=== PATIENT | male | born 1945 | race Caucasian/White ===

== ENCOUNTER 2020-01-16 02:16 | Inpatient (IN) | payer MEDICARE ==
[2020-01-16] MEDS ORDERED: LABETALOL 5 MG/ML VIAL MDV IVP STA (02:24)
--- NOTE | 2020-01-16 02:30 | ED ---
Chest Pain HPI - General Chief Complaint: Chest Pain Stated Complaint: Chest pain Time Seen by Provider: 01/16/20 02:22 Source: EMS, RN notes reviewed, old records reviewed Mode of arrival: EMS Limitations: no limitations - History of Present Illness Initial Comments: This is a 74-year-old male DF for evaluation patient has history of heart disease CABG complaining of chest pain as well as dizziness vertiginous symptoms weakness especially with position, these are symptoms similar prior ID with recalled required surgery. Patient states his symptoms are improved is on is still currently. No recent fevers cough or congestion no current headache MD Complaint: chest pain -: hour(s) Onset: during rest, during exertion Pain Location: substernal, left chest Pain Radiation: LUE Severity: mild Severity scale (1-10): 3 Quality: heaviness Consistency: intermittent Improves With: nothing Worsens With: nothing Anginal Symptoms: nausea Treatments Prior to Arrival: none - Related Data Home Medications Medication Instructions Recorded Confirmed Aspirin [Adult Low Dose Aspirin EC] 81 mg PO DAILY 01/16/20 01/16/20 Cholecalciferol [Vitamin D3 (25 1,000 unit PO DAILY 01/16/20 01/16/20 Mcg = 1000 Iu)] Pravastatin Sodium [Pravachol] 40 mg PO HS 01/16/20 01/16/20 Previous Rx's Medication Instructions Recorded ALPRAZolam [Xanax] 0.5 mg PO Q6HR PRN #12 tab 01/18/20 Acetaminophen Tab [Tylenol] 650 mg PO Q6HR PRN tab 01/18/20 Isosorbide Mononitrate ER [Imdur] 30 mg PO DAILY 30 Days #30 01/18/20 tab.er.24h Losartan [Cozaar] 50 mg PO BID 30 Days #60 tab 01/18/20 Metoprolol Tartrate [Lopressor] 50 mg PO BID 30 Days #60 tab 01/18/20 Nitroglycerin Sl Tabs [Nitrostat] 0.4 mg SUBLINGUAL Q5M PRN #30 tab 01/18/20 hydrALAZINE HCL 50 mg PO TID 30 Days #90 tab 01/18/20 Allergies Allergy/AdvReac Type Severity Reaction Status Date / Time No Known Allergies Allergy Verified 01/16/20 07:53 Review of Systems ROS Statement: Those systems with pertinent positive or pertinent negative responses have been documented in the HPI. ROS Other: All systems not noted in ROS Statement are negative. EKG Findings - EKG Comments: EKG Findings:: EKG shows bradycardia 54, WV 200, QRS 78, QTC 489. EKG shows sinus bradycardia 54 WV 200 QRS 80 QTC 489 Past Medical History Past Medical History: Chest Pain / Angina, Hypertension History of Any Multi-Drug Resistant Organisms: None Reported Past Surgical History: Coronary Bypass/CABG Additional Past Surgical History / Comment(s): triple bypass Past Psychological History: No Psychological Hx Reported Smoking Status: Never smoker Past Alcohol Use History: None Reported Past Drug Use History: None Reported - Past Family History Father Family Medical History: Myocardial Infarction (ID) Additional Family Medical History / Comment(s): Father had his first ID at the age of 47 and from his 3rd ID at the age of 49. Mother Family Medical History: Diabetes Mellitus Additional Family Medical History / Comment(s): Britt is . General Exam General appearance: alert, in no apparent distress Head exam: Present: atraumatic, normocephalic, normal inspection Eye exam: Present: normal appearance, PERRL, EOMI. Absent: scleral icterus, conjunctival injection, periorbital swelling ENT exam: Present: normal exam, mucous membranes moist Neck exam: Present: normal inspection. Absent: tenderness, meningismus, lymphadenopathy Respiratory exam: Present: normal lung sounds bilaterally. Absent: respiratory distress, wheezes, rales, rhonchi, stridor Cardiovascular Exam: Present: regular rate, normal rhythm, normal heart sounds. Absent: systolic murmur, diastolic murmur, rubs, gallop, clicks GI/Abdominal exam: Present: soft, normal bowel sounds. Absent: distended, tenderness, guarding, rebound, rigid Extremities exam: Present: normal inspection, full ROM, normal capillary refill. Absent: tenderness, pedal edema, joint swelling, calf tenderness Back exam: Present: normal inspection Neurological exam: Present: alert, oriented X3, CN II-XII intact Psychiatric exam: Present: normal affect, normal mood Skin exam: Present: warm, dry, intact, normal color. Absent: rash Course Vital Signs 01/16/20 01/16/20 01/16/20 02:18 03:45 04:10 Temperature 98.4 F Pulse Rate 55 L 64 55 L Respiratory 18 17 18 Rate Blood Pressure 145/90 171/84 198/93 O2 Sat by Pulse 100 99 99 Oximetry 01/16/20 01/16/20 01/16/20 04:45 05:19 06:03 Temperature Pulse Rate 53 L 55 L 55 L Respiratory 17 17 17 Rate Blood Pressure 173/67 177/90 O2 Sat by Pulse 99 99 99 Oximetry 01/16/20 01/16/20 01/16/20 06:51 09:42 11:36 Temperature 98.3 F Pulse Rate 53 L 56 L 57 L Respiratory 17 18 18 Rate Blood Pressure 173/93 170/90 135/76 O2 Sat by Pulse 98 98 98 Oximetry - Reevaluation(s) Reevaluation #1: Medical records reviewed Patient does have continued bouts of dizziness here in the ER which again he relates a prior ID Chest Pain MDM - MDM 74 male DF for evaluation has chest pain and dizziness, vertiginous symptoms similar prior ID CT brain negative CT angios for PE is negative for acute disease patient can be admitted for cardiology observation Critical Care Time Critical Care Time: Yes Total Critical Care Time: 31 Disposition Clinical Impression: Chest pain Disposition: ADMITTED IP TO THIS HOSP Condition: Stable Is patient prescribed a controlled substance at d/c from ED?: No
[2020-01-16 02:43] LABS: Basophils % (A) 0 %; Eosinophils # (A) 0.2 k/uL (0-0.7); Eosinophils % (A) 2 %; HCT 45.4 % (39.0-53.0); HGB 16.1 gm/dL (13.0-17.5); Lymphocytes % (A) 14 %; MCH 33.6 pg (25.0-35.0); MCHC 35.4 g/dL (31.0-37.0); Mean Platelet Volume 7.3; Monocytes # (A) 0.5 k/uL (0-1.0); Monocytes % (A) 6 %; Neutrophils # (A) 5.6 k/uL (1.3-7.7); Neutrophils % (A) 75 %; Platelet Count 176 k/uL (150-450); RBC 4.78 m/uL (4.30-5.90); RDW 13.8 % (11.5-15.5); WBC 7.4 k/uL (3.8-10.6)
--- NOTE | 2020-01-16 02:53 | XR ---
EXAMINATION TYPE: XR chest 2V DATE OF EXAM: 01/16/2020 COMPARISON: NONE HISTORY: Left side pain TECHNIQUE: 2 views FINDINGS: There is some blunting of the left costophrenic angle. There is also slight blunting on the right side. There is some linear density in the left midlung field. Heart size is normal. There are no hilar masses. There are sternal wires. Bony thorax is intact. IMPRESSION: There is some pleural and pulmonary scarring in the left lung. No heart failure seen. The re is evidence of small bilateral pleural effusions.
[2020-01-16 02:54] LABS: Albumin 3.6 g/dL (3.5-5.0); Calcium 8.7 mg/dL (8.4-10.2); Potassium 3.9 mmol/L (3.5-5.1); Total Bilirubin 0.9 mg/dL (0.2-1.3); Total Protein 6.4 g/dL (6.3-8.2)
[2020-01-16 03:14] LABS: INR 0.9 (<1.2); Prothrombin Time 9.7 sec (9.0-12.0)
[2020-01-16 03:26] LABS: D-Dimer 0.72 mg/L FEU (<0.60)
[2020-01-16] MEDS ORDERED: HEPARIN SODIUM,PORCINE 5,000 UNIT/ML 1 ML VIAL IV PRN (04:10)
[2020-01-16] MEDS ORDERED: HEPARIN SODIUM,PORCINE 5,000 UNIT/ML 1 ML VIAL IV ONE (04:10)
[2020-01-16] MEDS ORDERED: ASPIRIN 81 MG PO STA (04:10)
[2020-01-16] MEDS ORDERED: hydrALAZINE HCL 20 MG/ML 1 ML VIAL IVP STA ×2 (04:28→07:01)
--- NOTE | 2020-01-16 04:32 | CT ---
EXAMINATION TYPE: CT angio chest DATE OF EXAM: 01/16/2020 COMPARISON: None HISTORY: Chest pain CT DLP: 520.9 mGycm Automated exposure control for dose reduction was used. CONTRAST: Performed with IV Contrast, patient injected with 90 mL of Isovue 370. There are 3-D post processed images. There are mild to moderate bilateral pleural effusions. There is no pericardial effusion. There is so me patchy atelectasis at the lung bases. There is no mediastinal adenopathy. Thoracic aorta shows mild atheromatous change. There is no aneury sm or dissection. There are bilateral bronchial lymph nodes that measure up to 1 cm. There is normal contrast opacification of the pulmonary arteries. There are no filling defects. The b oswald thorax is intact. There are sternal wires. There is a 1 cm calcified gallstone. Bile ducts are no t dilated. There is plaque formation in the lower abdominal aorta that measures up to 1 cm in thickne ss. Abdominal aorta measures 2.8 cm. IMPRESSION: No evidence of pulmonary embolism. Patchy atelectasis and linear infiltrate at the lung bases with bi lateral pleural effusions. Nonspecific bronchial lymph nodes.
[2020-01-16] MEDS ORDERED: IBUPROFEN 600 MG TAB PO STA (04:50)
--- NOTE | 2020-01-16 06:51 | CT ---
EXAM: CT Head Without Intravenous Contrast CLINICAL HISTORY: ITS.REASON CT Reason: montague TECHNIQUE: Axial computed tomography images of the head/brain without intravenous contrast. CTDI is 49 mGy and DLP is 1123 mGy-cm. This CT exam was performed using one or more of the following dose reduction techniques: automated exposure control, adjustment of the mA and/or kV according to patient size, and/or use of iterative reconstruction technique. COMPARISON: No relevant prior studies available. FINDINGS: Brain: No hemorrhage or mass effect. Ventricles: No hydrocephalus. Mild cerebral volume loss. Bones/joints: Unremarkable. Soft tissues: Unremarkable. Sinuses: Unremarkable. Mastoid air cells: Clear. IMPRESSION: No acute hemorrhage, hydrocephalus, or mass effect.
[2020-01-16] MEDS: HEPARIN SOD,PORK IN 0.45% NACL 25,000 UNIT in 0.45% NACL 1 250ML.BAG IV SCH (07:25)
[2020-01-16 08:59] LABS: Mean Platelet Volume 7.7; Platelet Count 171 k/uL (150-450)
[2020-01-16] MEDS: METOPROLOL TARTRATE 50 MG TAB PO SCH ×2 (09:43→20:11)
[2020-01-16] MEDS ORDERED: PNEUMOCOCCAL VACC-PNEUMOVAX 23 25 MCG/0.5 ML VIAL IM ONE (09:46)
[2020-01-16] MEDS ORDERED: LOSARTAN 25 MG TAB PO SCH (10:15)
--- NOTE | 2020-01-16 11:15 | P.CRDCN ---
History of Present Illness Consult date: 01/16/20 Requesting physician: Mehran Crain Consult reason: non-Q-wave MO Chief complaint: Chest pain History of present illness: This is a 74-year-old gentleman who follows with Dr. Shady Dimas in the NECK OFFICE. HE HAS A HISTORY OF CORONARY ARTERY DISEASE WITH PRIOR CORONARY ARTERY BYPASS GRAFTING SURGERY IN 2011, HE UNDERWENT BYPASS SURGERY WITH A JACKSON TO THE SECOND OBTUSE MARGINAL, VEIN GRAFT TO THE PDA BRANCH AND ANOTHER VEIN GRAFT TO THE PLV BRANCH OF THE RIGHT CORONARY ARTERY. THE LAD WAS SMALL. The patient also has a history of hypertension, hyperlipidemia, nicotine dependence, family history of premature coronary artery disease. He presents to the hospital on this occasion with fairly sudden onset of shortness of breath with seated chest pressure and heaviness, he states he felt like someone heavy was sitting on his chest. He became quite clammy, also complained of a headache. Chest x-ray performed on arrival here showed some pleural and pulmonary scarring to the left lung, no heart failure. There is evidence of small bilateral pleural effusions. EKG shows a sinus bradycardia with nonspecific ST-T wave changes noted in the lateral leads. CTA of the chest negative for pulmonary embolism, patchy atelectasis and linear infiltrate at the lung bases with bilateral pleural effusions. Nonspecific bronchial lymph nodes noted. CAT scan of the head did not reveal any acute hemorrhage, hydrocephalus, or mass effect. Blood pressure 170/90 with a heart rate in the 50s, 98% on 2 L of oxygen. White blood cell count 7.4, hemoglobin 16.1, platelet count 176. Sodium 136, potassium 3.9, BUN 17, creatinine 0.9. Magnesium 2.0. D-dimer 0.72. BNP 1450. Troponins 0.03, 0.05, 0.04. At the time of my examination in the emergency room the patient is currently chest pain-free. Past Medical History Past Medical History: Coronary Artery Disease (CAD), Chest Pain / Angina, COPD, GERD/Reflux, Hyperlipidemia, Hypertension, Pneumonia History of Any Multi-Drug Resistant Organisms: None Reported Past Surgical History: Coronary Bypass/CABG, Heart Catheterization Additional Past Surgical History / Comment(s): 2011 triple bypass, R hand thumb/index and middle finger surgery twice d/t injury, nasal fracture with surgery, colonoscopy Past Anesthesia/Blood Transfusion Reactions: No Reported Reaction Smoking Status: Former smoker - Past Family History Father Family Medical History: Myocardial Infarction (MO) Additional Family Medical History / Comment(s): Father had his first MO at the age of 47 and from his 3rd MO at the age of 49. Mother Family Medical History: Diabetes Mellitus Additional Family Medical History / Comment(s): Elfegor is . Medications and Allergies Home Medications Medication Instructions Recorded Confirmed Type Aspirin [Adult Low Dose Aspirin EC] 81 mg PO DAILY 01/16/20 01/16/20 History Cholecalciferol [Vitamin D3 (25 1,000 unit PO DAILY 01/16/20 01/16/20 History Mcg = 1000 Iu)] Metoprolol Succinate (ER) [Toprol 100 mg PO HS 01/16/20 01/16/20 History Xl] Potassium Chloride [Klor-Con 20] 20 meq PO DAILY 01/16/20 01/16/20 History Pravastatin Sodium [Pravachol] 40 mg PO HS 01/16/20 01/16/20 History hydrALAZINE HCL 50 mg PO BID 01/16/20 01/16/20 History Allergies Allergy/AdvReac Type Severity Reaction Status Date / Time No Known Allergies Allergy Verified 01/16/20 07:53 Physical Exam Vitals: Vital Signs Temp Pulse Resp BP Pulse Ox 01/16/20 09:42 56 L 18 170/90 98 01/16/20 06:51 53 L 17 173/93 98 01/16/20 06:03 55 L 17 177/90 99 01/16/20 05:19 55 L 17 173/67 99 01/16/20 04:45 53 L 17 99 01/16/20 04:10 55 L 18 198/93 99 01/16/20 03:45 64 17 171/84 99 01/16/20 02:18 98.4 F 55 L 18 145/90 100 Intake and Output 01/15/20 01/16/20 01/16/20 22:59 06:59 14:59 Other: Weight 86.636 kg 86.636 kg PHYSICAL EXAMINATION: GENERAL: 74-year-old gentleman in no acute distress at the time of my examination HEENT: Head is atraumatic, normocephalic. Pupils equal, round. Sclera anicteric. Conjunctiva are clear. Mucous membranes of the mouth are moist. Neck is supple. There is no elevated jugular venous pressure. No carotid bruit is heard. HEART EXAMINATION: Heart S1, S2 normal. No murmur or gallop heard. CHEST EXAMINATION: Lungs reveal fine rales to the bases bilaterally ABDOMEN: Soft, nontender. Bowel sounds are heard. No organomegaly noted. EXTREMITIES: 2+ peripheral pulses with no evidence of peripheral edema and no calf tenderness noted. NEUROLOGIC patient is awake, alert and oriented 3 . . Results 01/16/20 08:30 01/16/20 02:27 Cardiac Enzymes 01/16/20 01/16/20 01/16/20 Range/Units 02:27 02:27 05:17 AST 31 (17-59) U/L Troponin I 0.033 0.051 H* (0.000-0.034) ng/mL 01/16/20 Range/Units 08:30 AST (17-59) U/L Troponin I 0.040 H* (0.000-0.034) ng/mL Coagulation 01/16/20 Range/Units 02:27 PT 9.7 (9.0-12.0) sec APTT 22.0 (22.0-30.0) sec CBC 01/16/20 01/16/20 Range/Units 02:27 08:30 WBC 7.4 (3.8-10.6) k/uL RBC 4.78 (4.30-5.90) m/uL Hgb 16.1 (13.0-17.5) gm/dL Hct 45.4 (39.0-53.0) % Plt Count 176 171 (150-450) k/uL Comprehensive Metabolic Panel 01/16/20 Range/Units 02:27 Sodium 136 L (137-145) mmol/L Potassium 3.9 (3.5-5.1) mmol/L Chloride 107 (98-107) mmol/L Carbon Dioxide 23 (22-30) mmol/L BUN 17 (9-20) mg/dL Creatinine 0.98 (0.66-1.25) mg/dL Glucose 136 H (74-99) mg/dL Calcium 8.7 (8.4-10.2) mg/dL AST 31 (17-59) U/L ALT 25 (4-49) U/L Alkaline Phosphatase 43 (38-126) U/L Total Protein 6.4 (6.3-8.2) g/dL Albumin 3.6 (3.5-5.0) g/dL Current Medications Generic Name Dose Route Start Last Admin Trade Name Freq PRN Reason Stop Dose Admin Aspirin 81 mg 01/17/20 09:00 Aspirin PO DAILY [facility] Heparin Sodium (Porcine) 0 unit 01/16/20 04:10 Heparin IV Q6HR PRN Low PTT Protocol Heparin Sodium/Sodium Chloride 250 mls @ 9.53 mls/hr 01/16/20 04:15 01/16/20 07:25 25,000 unit/ Sodium Chloride IV 11 units/kg/hr .Q24H LUBNA 9.53 mls/hr Administration Protocol 11 UNITS/KG/HR Losartan Potassium 25 mg 01/16/20 10:15 Cozaar PO DAILY [facility] Metoprolol Tartrate 50 mg 01/16/20 09:00 01/16/20 09:43 Lopressor PO 50 mg BID LUBNA Administration Nitroglycerin 0.4 mg 01/16/20 04:10 Nitrostat SUBLINGUAL Q5M PRN Chest Pain Intake and Output 01/15/20 01/16/20 01/16/20 22:59 06:59 14:59 Other: Weight 86.636 kg 86.636 kg Patient Weight 01/17/20 06:59 Weight 86.636 kg 01/16/20 08:30 01/16/20 02:27 EKG Interpretations (text) EKG shows a sinus bradycardia with nonspecific ST-T wave changes noted in the lateral leads Assessment and Plan Plan: Assessment and plan #1 symptoms of chest pressure and heaviness with associated shortness of breath and clamminess, clinical picture suggestive acute coronary syndrome. EKG shows a sinus bradycardia with lateral ST-T wave changes. Troponins 0.03, 0.05, 0.04. #2 known history of coronary artery disease with prior bypass surgery in 2011 #3 hypertension #4 hyperlipidemia #5 family history of premature coronary artery disease #6 history of nicotine dependence Plan We will obtain an echocardiogram with Doppler study. We will also add losartan to the patient's medication regime, to optimize blood pressure control. Continue aspirin, metoprolol, start the patient on a statin. Patient has been advised to undergo cardiac catheterization, the risks and benefits were explained to the patient in detail. Dr. Sy will speak with Dr. MARLENY Dimas, we will tentatively schedule patient for cardiac catheterization tomorrow. Further recommendations to follow. DNP note has been reviewed, I agree with a documented findings and plan of care. Patient was seen and examined.
[2020-01-16] MEDS ORDERED: ATORVASTATIN 80 MG TAB PO STA (11:25)
[2020-01-16] MEDS ORDERED: ASPIRIN 325 MG TAB PO STA (11:25)
[2020-01-16] MEDS ORDERED: NITROGLYCERIN SL TABS 0.4 MG TAB SUBLINGUAL PRN (11:25)
[2020-01-16] MEDS ORDERED: SODIUM CHLORIDE 0.9% 1,000 ML in EMPTY BAG 1 BAG IV ONE (11:25)
[2020-01-16] MEDS ORDERED: ALPRAZolam 0.25 MG TAB PO PRN (11:25)
[2020-01-16] MEDS ORDERED: ALPRAZolam 0.5 MG TAB PO PRN (11:25)
--- NOTE | 2020-01-16 11:27 | ECHOF ---
Referral Reason:assess lvf MEASUREMENTS -------- HEIGHT: 175.3 cm WEIGHT: 86.6 kg BP: 174/106 RVIDd: 3.1 cm (< 3.3) IVSd: 1.3 cm (0.6 - 1.1) LVIDd: 4.2 cm (3.9 - 5.3) LVPWd: 1.3 cm (0.6 - 1.1) IVSs: 1.7 cm LVIDs: 3.0 cm LVPWs: 2.0 cm LA Diam: 3.7 cm (2.7 - 3.8) LAESV Index (A-L): 27.76 ml/m Ao Diam: 3.3 cm (2.0 - 3.7) AV Cusp: 2.0 cm (1.5 - 2.6) MV EXCURSION: 24.295 mm (> 18.000) MV EF SLOPE: 18 mm/s (70 - 150) EPSS: 0.2 cm MV E Silvestre: 1.04 m/s MV DecT: 193 ms MV A Silvestre: 0.61 m/s MV E/A Ratio: 1.71 RAP: 5.00 mmHg RVSP: 34.99 mmHg FINDINGS -------- This was a technically adequate study. HX of CABG The left ventricular size is normal. There is mild concentric left ventricular hypertrophy. Overa ll left ventricular systolic function is low-normal with, an EF between 50 - 55 %. Basal inferior L V wall motion is hypokinetic. Basal inferoseptal LV wall motion is hypokinetic. The right ventricle is normal in size. Normal LA size by volume 22+/-6 ml/m2. The right atrium is normal in size. Interatrial and interventricular septum intact. The aortic valve is trileaflet and appears structurally normal. Mild mitral annular calcification present. Mild tricuspid regurgitation present. There is mild pulmonary hypertension. The right ventricular systolic pressure, as measured by Doppler, is 34.99mmHg. There is no pulmonic regurgitation present. The aortic root size is normal. IVC Not well visulized. There is no pericardial effusion. CONCLUSIONS -------- 1. This was a technically adequate study. 2. HX of CABG 3. The left ventricular size is normal. 4. There is mild concentric left ventricular hypertrophy. 5. Overall left ventricular systolic function is low-normal with, an EF between 50 - 55 %. 6. Basal inferior LV wall motion is hypokinetic. 7. Basal inferoseptal LV wall motion is hypokinetic. 8. The right ventricle is normal in size. 9. Normal LA size by volume 22+/-6 ml/m2. 10. The right atrium is normal in size. 11. Interatrial and interventricular septum intact. 12. The aortic valve is trileaflet and appears structurally normal. 13. Mild mitral annular calcification present. 14. Mild tricuspid regurgitation present. 15. There is mild pulmonary hypertension. 16. The right ventricular systolic pressure, as measured by Doppler, is 34.99mmHg. 17. There is no pulmonic regurgitation present. 18. The aortic root size is normal. 19. IVC Not well visulized. 20. There is no pericardial effusion. REPACK ROOM WORKER: Leora Worthington RDCS
[2020-01-16] MEDS: ATORVASTATIN 80 MG TAB PO SCH (13:20)
--- NOTE | 2020-01-16 13:38 | P.HPIM ---
History of Present Illness Patient is an 74-year-old gentleman came with complains of chest pain has been going on on and off for a while which is heaviness. Patient just pain is nonpleuritic not associated with food has some associated shortness of breath de nied any fever chills lightheadedness pain chest pain lasts anywhere between 1-3 hours episodic. Patient had history of a previous CABG in the past in 2011. Patient was evaluated by cardiology patient has minimally elevated troponins of 0.04 and 0.05 and the recording cardiac catheterization same thing was discussed the patient and patient is agreeable for cardiac catheterization CT angios the c hest did not show any pulmonary embolism except for the bilateral pleural effusions. Echocardiogram showed normal ejection fraction with some almost abdominal distress which can be older. Patient had a CT brain CT which is did not show any acute abnormalities. His BNP is only 40 and 50 and patient doesn't have any elevated JVD Review of Systems REVIEW OF SYSTEMS: CONSTITUTIONAL: No fever, no malaise, no fatigue. HEENT: No recent visual problems or hearing problems. Denied any sore throat. CARDIOVASCULAR: No orthopnea, PND, no palpitations, no syncope. PULMONARY: No shortness of breath, no cough, no hemoptysis. GASTROINTESTINAL: No diarrhea, no nausea, no vomiting, no abdominal pain. NEUROLOGICAL: No headaches, no weakness, no numbness. HEMATOLOGICAL: Denies any bleeding or petechiae. GENITOURINARY: Denies any burning micturition, frequency, or urgency. MUSCULOSKELETAL/RHEUMATOLOGICAL: Denies any joint pain, swelling, or any muscle pain. ENDOCRINE: Denies any polyuria or polydipsia. The rest of the 14-point review of systems is negative. Past Medical History Past Medical History: Coronary Artery Disease (CAD), Chest Pain / Angina, COPD, GERD/Reflux, Hyperlipidemia, Hypertension, Pneumonia History of Any Multi-Drug Resistant Organisms: None Reported Past Surgical History: Coronary Bypass/CABG, Heart Catheterization Additional Past Surgical History / Comment(s): 2011 triple bypass, R hand thumb/index and middle finger surgery twice d/t injury, nasal fracture with surgery, colonoscopy Past Anesthesia/Blood Transfusion Reactions: No Reported Reaction Smoking Status: Former smoker - Past Family History Father Family Medical History: Myocardial Infarction (NC) Additional Family Medical History / Comment(s): Father had his first NC at the age of 47 and from his 3rd NC at the age of 49. Mother Family Medical History: Diabetes Mellitus Additional Family Medical History / Comment(s): Britt is . Medications and Allergies Home Medications Medication Instructions Recorded Confirmed Type Aspirin [Adult Low Dose Aspirin EC] 81 mg PO DAILY 01/16/20 01/16/20 History Cholecalciferol [Vitamin D3 (25 1,000 unit PO DAILY 01/16/20 01/16/20 History Mcg = 1000 Iu)] Metoprolol Succinate (ER) [Toprol 100 mg PO HS 01/16/20 01/16/20 History Xl] Potassium Chloride [Klor-Con 20] 20 meq PO DAILY 01/16/20 01/16/20 History Pravastatin Sodium [Pravachol] 40 mg PO HS 01/16/20 01/16/20 History hydrALAZINE HCL 50 mg PO BID 01/16/20 01/16/20 History Allergies Allergy/AdvReac Type Severity Reaction Status Date / Time No Known Allergies Allergy Verified 01/16/20 07:53 Physical Exam Vitals: Vital Signs Temp Pulse Resp BP Pulse Ox 01/16/20 11:36 98.3 F 57 L 18 135/76 98 01/16/20 09:42 56 L 18 170/90 98 01/16/20 06:51 53 L 17 173/93 98 01/16/20 06:03 55 L 17 177/90 99 01/16/20 05:19 55 L 17 173/67 99 01/16/20 04:45 53 L 17 99 01/16/20 04:10 55 L 18 198/93 99 01/16/20 03:45 64 17 171/84 99 01/16/20 02:18 98.4 F 55 L 18 145/90 100 Intake and Output 01/15/20 01/16/20 01/16/20 22:59 06:59 14:59 Other: Weight 86.636 kg 86.636 kg PHYSICAL EXAMINATION: GENERAL: The patient is alert and oriented x3, not in any acute distress. Well developed, well nourished. HEENT: Pupils are round and equally reacting to light. EOMI. No scleral icterus. No conjunctival pallor. Normocephalic, atraumatic. No pharyngeal erythema. No thyromegaly. CARDIOVASCULAR: S1 and S2 present. No murmurs, rubs, or gallops. PULMONARY: Chest is clear to auscultation, no wheezing or crackles. ABDOMEN: Soft, nontender, nondistended, normoactive bowel sounds. No palpable organomegaly. MUSCULOSKELETAL: No joint swelling or deformity. EXTREMITIES: No cyanosis, clubbing, or pedal edema. NEUROLOGICAL: Gross neurological examination did not reveal any focal deficits. SKIN: No rashes. Results CBC & Chem 7: 01/16/20 08:30 01/16/20 02:27 Labs: Abnormal Lab Results - Last 24 Hours (Table) 01/16/20 01/16/20 01/16/20 Range/Units 02:27 02:27 05:17 D-Dimer 0.72 H (<0.60) mg/L FEU Sodium 136 L (137-145) mmol/L Glucose 136 H (74-99) mg/dL Creatine Kinase 173 H (55-170) U/L Troponin I 0.051 H* (0.000-0.034) ng/mL 01/16/20 Range/Units 08:30 D-Dimer (<0.60) mg/L FEU Sodium (137-145) mmol/L Glucose (74-99) mg/dL Creatine Kinase (55-170) U/L Troponin I 0.040 H* (0.000-0.034) ng/mL Thrombosis Risk Factor Assmnt - Choose All That Apply Any of the Below Risk Factors Present?: Yes Each Factor Represents 1 point: Abnormal pulmonary function (COPD), Obesity (BMI >25) Other Risk Factors: Yes Each Risk Factor Represents 3 Points: Age 75 years or older Other congenital or acquired thrombophilia - If yes, enter type in comment: No Thrombosis Risk Factor Assessment Total Risk Factor Score: 5 Thrombosis Risk Factor Assessment Level: High Risk Assessment and Plan Plan: -Chest pain with mildly elevated troponins possibility of non-ST elevation myocardial infarction: Continue with heparin antiplatelet therapy beta bebeto. Will undergo cardiac catheterization tomorrow -Coronary artery disease with history of CABG in the past - hypertension: Patient was started on JACKELYN inhibitor for better blood pressure control by cardiology - hyperlipidemia -Ruled out PE and pneumonia -Gastroesophageal reflux disease For above-mentioned chronic problems patient will be resumed and continued on appropriate home medications
[2020-01-16] MEDS: hydrALAZINE HCL 50 MG TAB PO SCH ×2 (17:41→20:11)
[2020-01-16] MEDS: LOSARTAN 25 MG TAB PO SCH (20:11)
[2020-01-17] MEDS: HEPARIN SOD,PORK IN 0.45% NACL 25,000 UNIT in 0.45% NACL 1 250ML.BAG IV SCH (03:42)
[2020-01-17 06:26] LABS: Mean Platelet Volume 7.6; Platelet Count 149 k/uL (150-450)
[2020-01-17] MEDS ORDERED: ACETAMINOPHEN TAB 325 MG TAB PO PRN (06:43)
[2020-01-17 06:46] LABS: African American GFR (CKD) >90 (>60 ml/min/1.73 sqM); Anion Gap 4 mmol/L; Blood Urea Nitrogen 17 mg/dL (9-20); Carbon Dioxide 23 mmol/L (22-30); Chloride 111 mmol/L (98-107); Cholesterol 111 mg/dL (<200); Glucose 97 mg/dL (74-99); HDL Cholesterol 35 mg/dL (40-60); LDL Cholesterol,Calculated 53 mg/dL (0-99); Non-African American GFR(CKD) 84 (>60 ml/min/1.73 sqM); Potassium 4.1 mmol/L (3.5-5.1); Sodium 138 mmol/L (137-145); Triglycerides 116 mg/dL (<150)
[2020-01-17] MEDS ORDERED: ASPIRIN 325 MG TAB PO SCH (09:00)
[2020-01-17] MEDS: METOPROLOL TARTRATE 50 MG TAB PO SCH ×2 (09:17→20:07)
[2020-01-17] MEDS: ATORVASTATIN 80 MG TAB PO SCH (09:17)
[2020-01-17] MEDS: LOSARTAN 25 MG TAB PO SCH ×2 (09:18→20:07)
[2020-01-17] MEDS: hydrALAZINE HCL 50 MG TAB PO SCH ×3 (09:18→20:07)
[2020-01-17] MEDS: ASPIRIN 81 MG PO SCH (09:18)
--- NOTE | 2020-01-17 11:15 | PN ---
PROGRESS NOTE Mr. Emanuel is a 74-year-old male with a known history of coronary artery disease, status post coronary artery bypass grafting, who presented with chest discomfort and acute dyspnea. He had minimal troponin elevation. He is feeling well this morning. He has no further chest pain. His breathing has been stable. He denies any dizziness, palpitation. He continues to have dyspnea with exertion. He had an echocardiogram that revealed an ejection fraction of 50% to 55% with mild tricuspid regurgitation and inferoseptal wall hypokinesis. MEDICATION: At this time continue to be aspirin once a day, Lipitor 80 mg daily, IV heparin, hydralazine 50 mg 3 times a day, losartan 25 mg twice a day. PHYSICAL EXAMINATION: Blood pressure 129/60 with a heart rate in 60s. LUNGS: Clear. HEART: Regular rate and rhythm, S1, S2. No S3 with systolic ejection murmur heard at the base. No diastolic murmur, no rub. ABDOMEN: Soft, nontender. EXTREMITIES: No edema. LAB DATA: Revealed BUN and creatinine 17 and 0.9, potassium 4.1. His cholesterol is 111, LDL of 53. IMPRESSION: 1. Non ST-segment elevation myocardial infarction. 2. Acute episode of dyspnea, probably ischemic. 3. Status post coronary artery bypass grafting. 4. History of hypertension. 5. History of hyperlipidemia, treated. 6. Prior history of smoking. RECOMMENDATION: I have recommend proceeding with coronary angiography to assess his status and guide his treatment. 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 Dimas. I have discussed those findings with the patient and he is in full understanding and agreement. MMODL / IJN: [id number] /
[2020-01-17] MEDS: NITROGLYCERIN SL TABS 0.4 MG TAB SUBLINGUAL PRN ×3 (13:46→22:08)
[2020-01-18] MEDS: ASPIRIN 81 MG PO SCH (05:16)
[2020-01-18] MEDS: HEPARIN SOD,PORK IN 0.45% NACL 25,000 UNIT in 0.45% NACL 1 250ML.BAG IV SCH (05:16)
[2020-01-18] MEDS: ATORVASTATIN 80 MG TAB PO SCH (05:16)
[2020-01-18] MEDS: METOPROLOL TARTRATE 50 MG TAB PO SCH (05:16)
[2020-01-18] MEDS: hydrALAZINE HCL 50 MG TAB PO SCH ×2 (05:16→15:48)
[2020-01-18] MEDS: LOSARTAN 25 MG TAB PO SCH (05:16)
--- NOTE | 2020-01-18 06:11 | P.PN ---
Subjective Progress Note Date: 01/17/20 Principal diagnosis: Patient is an 74-year-old gentleman came with complains of chest pain has been going on on and off for a while which is heaviness. Patient just pain is nonple uritic not associated with food has some associated shortness of breath denied any fever chills lightheadedness pain chest pain lasts anywhere between 1-3 hours episodic. Patient had history of a previous CABG in the past in 2011. Patient was evaluated by cardiology patient has minimally elevated troponins of 0.04 and 0.05 and the recording cardiac catheterization same thing was discussed the patient and patient is agreeable for cardiac catheterization CT angios the chest did not show any pulmonary embolism except for the bilateral pleural effusions. Echocardiogram showed normal ejection fraction with some almost abdominal distress which can be older. Patient had a CT brain CT which is did not show any acute abnormalities. His BNP is only 40 and 50 and patient doesn't have any elevated JVD 01/17/2020 Patient is seen and evaluated in follow up today and remains on the heparin drip . Patient is to undergo cardiac catheterization Tuesday morning with Dr. Dimas. Patient currently has no chest pain, worsening shortness of breath, or palpitations. Patient is afebrile. No reports of nausea or vomiting and tolerating diet. Patient states he continues to have dyspnea with exertion even while getting up to walk to the bathroom he has to rest. Vital signs within normal limits. Patient is on room air. Objective - Vital Signs Vital signs: Vital Signs Temp 99.2 F 01/17/20 12:42 Pulse 65 01/17/20 12:42 Resp 22 01/17/20 12:42 BP 170/73 01/17/20 12:42 Pulse Ox 96 01/17/20 12:42 Intake & Output 01/16/20 01/17/20 01/17/20 18:59 06:59 18:59 Intake Total 525.783 150.198 Balance 525.783 150.198 Weight 86.636 kg 89 kg Intake: Intake, IV Titration 105.783 150.198 Amount Heparin Sod,Pork in 0.45% 105.783 150.198 NaCl 25,000 unit In 0.45 % NaCl 1 250ml.bag @ 11 UNITS/KG/HR 9.53 mls/hr IV .Q24H [facility] Rx#: [id number] Oral 420 Other: Voiding Method Toilet Toilet # Voids 1 1 1 - Exam GENERAL: The patient is alert and oriented x3, not in any acute distress. Well developed, well nourished. HEENT: Pupils are round and equally reacting to light. EOMI. No scleral icterus. No conjunctival pallor. Normocephalic, atraumatic. No pharyngeal erythema. No thyromegaly. CARDIOVASCULAR: S1 and S2 present. No murmurs, rubs, or gallops. PULMONARY: Chest is clear to auscultation, no wheezing or crackles. ABDOMEN: Soft, nontender, mildly distended, normoactive bowel sounds. No palpable organomegaly. MUSCULOSKELETAL: No joint swelling or deformity. EXTREMITIES: No cyanosis, clubbing, or pedal edema. NEUROLOGICAL: Gross neurological examination did not reveal any focal deficits. SKIN: No rashes. - Labs CBC & Chem 7: 01/17/20 06:01 01/17/20 06:01 Labs: Abnormal Lab Results - Last 24 Hours (Table) 01/16/20 01/17/20 01/17/20 Range/Units 13:57 00:27 06:01 Plt Count 149 L (150-450) k/uL APTT 34.1 H 58.4 H (22.0-30.0) sec Chloride (98-107) mmol/L Calcium (8.4-10.2) mg/dL HDL Cholesterol (40-60) mg/dL 01/17/20 01/17/20 Range/Units 06:01 06:01 Plt Count (150-450) k/uL APTT 47.6 H (22.0-30.0) sec Chloride 111 H (98-107) mmol/L Calcium 8.0 L (8.4-10.2) mg/dL HDL Cholesterol 35 L (40-60) mg/dL Assessment and Plan Assessment: -Chest pain with mildly elevated troponins possibility of non-ST elevation myocardial infarction: Continue with heparin drip antiplatelet therapy beta bebeto. Will undergo cardiac catheterization tomorrow with Dr. Dimas -Coronary artery disease with history of CABG in the past -hypertension: Patient was started on JACKELYN inhibitor for better blood pressure control by cardiology -hyperlipidemia -Ruled out PE and pneumonia -Gastroesophageal reflux disease
[2020-01-18 06:52] LABS: Platelet Count 158 k/uL (150-450)
[2020-01-18] MEDS ORDERED: IV FLUID CONTINUATION 1,000 ML IV ONE (07:30)
[2020-01-18] MEDS ORDERED: LIDOCAINE 1% INJ 10MG/ML (20 ML MDV) ONE (07:32)
[2020-01-18] MEDS ORDERED: MIDAZOLAM 2 MG/2 ML VIAL IVP ONE (07:39)
[2020-01-18 07:41] LABS: African American GFR (CKD) >90 (>60 ml/min/1.73 sqM); Anion Gap 5 mmol/L; Blood Urea Nitrogen 18 mg/dL (9-20); Carbon Dioxide 22 mmol/L (22-30); Chloride 112 mmol/L (98-107); Glucose 103 mg/dL (74-99); Non-African American GFR(CKD) 83 (>60 ml/min/1.73 sqM); Potassium 3.7 mmol/L (3.5-5.1); Sodium 139 mmol/L (137-145)
[2020-01-18] MEDS ORDERED: LIDOCAINE 1% INJ 10MG/ML (20 ML MDV) SQ ONE ×2 (07:41→07:46)
[2020-01-18] MEDS ORDERED: IOPAMIDOL-370 100ML BTL INJ ONE ×2 (08:12→08:20)
[2020-01-18] MEDS ORDERED: HYDROmorphone 1 MG/ML 1 ML SYRINGE IVP ONE (08:20)
[2020-01-18] MEDS ORDERED: SODIUM CHLORIDE 0.9% 1,000 ML IV SCH (08:45)
[2020-01-18] MEDS ORDERED: ISOSORBIDE MONONITRATE ER 30 MG TAB.ER.24H PO SCH (09:00)
--- NOTE | 2020-01-18 11:45 | CC ---
CARDIAC CATHETERIZATION REPORT DATE OF SERVICE: 01/18/2020. PROCEDURE: Left heart catheterization, coronary angiography and selective injection of bypass grafts. PERFORMED BY: Dr. Micheal Dimas. Moderate conscious sedation time was 45 minutes. Patient was administered Versed. Oxygen saturation, hemodynamics and EKG were monitored closely. CLINICAL INFORMATION: Mr. Roman Emanuel is a 74-year-old gentleman with a history of CAD, hypertension, and hyperlipidemia. In 2011, he underwent a cardiac cath because of an acute inferior AR. At that time, he was found to have a very atretic small LAD. His circumflex came off from the right cusp. Circumflex had 3 different obtuse marginals. The 3rd had a tight stenosis. RCA was a culprit lesion with a distal stenosis that was significant and was the culprit lesion. He had an intra-aortic balloon pump placement and a bypass surgery with the JACKSNO to the third obtuse marginal and 2 separate vein grafts to the PLV branch and PDA branch of RCA. Because of symptoms suggestive of angina and mild troponin elevation. He was hospitalized after stabilizing him and ruling out a PE by CT angio. He was advised cardiac catheterization. Risks, benefits, options, rationale were explained. PROCEDURE NOTE: Under strict aseptic precautions and local anesthesia, a 6-Indian introducer was placed in the right femoral artery. Using a standard left catheter, I could not cannulate the left coronary artery. A 3.5 left Yecenia was used for the left coronary. A Nara catheter was used for the right coronary artery and the vein graft to the PLV branch of RCA. The same Nara was used for the JACKSON injection. I used an AR2 catheter for the vein graft to the PDA branch of RCA. A pigtail catheter was used to check LV pressure but LV gram was not performed. The sheath was taken out and a Perclose device used to secure hemostasis and he was sent to the room in stable condition. CARDIAC CATHETERIZATION FINDINGS: The left ventricular end-diastolic pressure was about 14 mmHg without any gradient across the aortic valve. CORONARY ANGIOGRAPHY FINDINGS: LEFT CORONARY ARTERY: This is a single left coronary artery and it is small, atretic, does not have any significant stenosis. It is a small caliber vessel that immediately divides into a diagonal branch and runs towards the mid portion of the anterior wall. Limited amount of myocardium supplied by it. No significant disease. RIGHT CORONARY ARTERY: This is a dominant vessel that comes off from the right cusp, totally occluded in the midportion after a conus branch and 2 acute marginal branches. LEFT CIRCUMFLEX CORONARY ARTERY: This comes from the right cusp. It runs towards the left side across and gives off 3 obtuse marginals. The third obtuse marginal has competitive flow. The 2 obtuse marginals have about 30% to 40% narrowing. No significant disease. SAPHENOUS VEIN GRAFT TO THE PLV BRANCH OF RCA: This graft is totally occluded, seen as a stump. SAPHENOUS VEIN GRAFT TO THE PDA BRANCH OF RCA: This graft is widely patent, opacifies the PDA and also goes back and fills the PLV. No significant disease in the origin of the body of the graft for insertion site and opacified PDA is of a fairly decent caliber with minor disease and PLV is also opacified by this. LEFT INTERNAL MAMMARY ARTERY GRAFT TO LAD: This graft is widely patent. Has no other significant disease and its origin course or insertion site. Opacified obtuse marginal branch as well as a secondary branch are widely patent. IMPRESSION: This patient has acceptable filling pressures. no gradient across aortic valve. A right-dominant system with total occlusion of the RCA and significant disease in the third obtuse marginal branch of circumflex which comes from the right cusp. LAD is small, has no significant disease. JACKSON to the obtuse marginal is patent. The vein graft to the PLV is totally occluded, vein graft to the PDA is widely patent. It also fills the PLV branch of RCA. Filling pressures are acceptable. No gradient across the aortic valve. RECOMMENDATIONS: I am recommending continued medical therapy with risk factor modification. Patient can be discharged later today or tomorrow. I will increase losartan to 50 mg daily. add Imdur 30 mg daily to his regimen. The patient can be discharged later today or tomorrow. Findings were discussed with the patient and family. I will see him in the office in one week. MMODL / IJN: [id number] /
--- NOTE | 2020-01-18 15:03 | P.DS ---
Providers Date of admission: 01/18/20 08:27 Expected date of discharge: 01/18/20 Attending physician: Mehran Crain Consults: 01/16/20 04:10 Consult Physician Urgent Consulting Provider: Abram Sy Consult Reason/Comments: cp Do you want consulting provider notified?: Yes [facility] Course: Final diagnosis -Chest pain with mildly elevated troponins possibility of non-ST elevation myocardial infarction -Coronary artery disease with history of CABG in the past -hypertension -hyperlipidemia -Ruled out PE and pneumonia -Gastroesophageal reflux disease Discharge disposition Patient is being discharged in a stable condition with guarded prognosis to home. Patient will follow-up with Dr. Antonio upon discharge. Patient will also follow-up with cardiology Dr. Dimas in one week. Total time taken is 35 minutes. History of present illness This is an 74-year-old male who was recently admitted with chest pain and heaviness along with some shortness of breath and was being closely monitored. Patient does have a history of a CABG in 2011 and was found to have mildly elevated troponins upon admission. Patient was initiated on IV heparin. Patient was seen and evaluated by cardiology and underwent echo showing left ventricular systolic function is low to normal with an EF between 50 and 55% along with mild pulmonary hypertension, mild mitral and tricuspid regurgitation present, and some mild concentric left ventricular hypertrophy. Patient underwent cardiac catheterization this morning showing acceptable filling pressures with no gradient across the aortic valve, a right dominant system with total occlusion of the RCA and significant disease in the third obtuse marginal branch of circumflex which comes from the right cusp, small LAD with no significant disease, JACKSON to the obtuse marginal is patent, vein graft to the PLB is totally occluded, vein graft to the PDA is widely patent and cardiology recommending continued medical therapy with risk factor modifications. Patient's medications have been adjusted and patient will be discharged home later today. Indoor 30 mg daily has been added to his daily regimen along with increase in losartan to 50 mg daily. Currently no reports of chest pain, shortness of breath, or palpitations. Patient is afebrile. No reports of nausea or vomiting and patient is tolerating diet. Patient will be discharged home today. On exam vital signs are stable. Temp is 98.5F, pulse is 50, respirations are 18, blood pressure is 113/63, oxygen saturation is 95 % on room air. Cardio S1, S2 are present. Respiratory system shows clear to auscultation. Abdomen is soft, mildly distended, and non-tender. Nervous system shows no focal deficits. Please refer to medication reconciliation sheet for a list of medications. Patient Condition at Discharge: Stable Plan - Discharge Summary Discharge Rx Participant: No New Discharge Prescriptions: New Losartan [Cozaar] 50 mg PO BID 30 Days #60 tab Isosorbide Mononitrate ER [Imdur] 30 mg PO DAILY 30 Days #30 tab.er.24h Metoprolol Tartrate [Lopressor] 50 mg PO BID 30 Days #60 tab Nitroglycerin Sl Tabs [Nitrostat] 0.4 mg SUBLINGUAL Q5M PRN #30 tab PRN Reason: Chest Pain Acetaminophen Tab [Tylenol] 650 mg PO Q6HR PRN tab PRN Reason: Fever And/ Or Pain ALPRAZolam [Xanax] 0.5 mg PO Q6HR PRN #12 tab PRN Reason: Moderate Anxiety Continue Pravastatin Sodium [Pravachol] 40 mg PO HS Cholecalciferol [Vitamin D3 (25 Mcg = 1000 Iu)] 1,000 unit PO DAILY Aspirin [Adult Low Dose Aspirin EC] 81 mg PO DAILY hydrALAZINE HCL 50 mg PO TID 30 Days #90 tab Discontinued Potassium Chloride [Klor-Con 20] 20 meq PO DAILY hydrALAZINE HCL 50 mg PO BID Metoprolol Succinate (ER) [Toprol Xl] 100 mg PO HS Discharge Medication List Aspirin [Adult Low Dose Aspirin EC] 81 mg PO DAILY 01/16/20 [History] Cholecalciferol [Vitamin D3 (25 Mcg = 1000 Iu)] 1,000 unit PO DAILY 01/16/20 [History] Pravastatin Sodium [Pravachol] 40 mg PO HS 01/16/20 [History] ALPRAZolam [Xanax] 0.5 mg PO Q6HR PRN #12 tab 01/18/20 [Rx] Acetaminophen Tab [Tylenol] 650 mg PO Q6HR PRN tab 01/18/20 [Rx] Isosorbide Mononitrate ER [Imdur] 30 mg PO DAILY 30 Days #30 tab.er.24h 01/18/20 [Rx] Losartan [Cozaar] 50 mg PO BID 30 Days #60 tab 01/18/20 [Rx] Metoprolol Tartrate [Lopressor] 50 mg PO BID 30 Days #60 tab 01/18/20 [Rx] Nitroglycerin Sl Tabs [Nitrostat] 0.4 mg SUBLINGUAL Q5M PRN #30 tab 01/18/20 [Rx] hydrALAZINE HCL 50 mg PO TID 30 Days #90 tab 01/18/20 [Rx] Follow up Appointment(s)/Referral(s): Mendez Dimas MD [STAFF PHYSICIAN] - 01/25/20 9:00 am Javier Antonio MD [Primary Care Provider] - 1-2 days Patient Instructions/Handouts: Chest Pain (ED) Activity/Diet/Wound Care/Special Instructions: Activity Limited until follow-up Continue current diet Follow-up with primary care provider upon discharge Follow-up with cardiology as discussed and scheduled in one week Discharge Disposition: HOME SELF-CARE
[2020-01-18 15:51] VITALS: BP 177/77; PULSE 55; RESP 20; TEMP 97.6
[2020-01-18] MEDS ORDERED: LOSARTAN 50 MG TAB PO SCH (21:00)
== END 2020-01-18 18:27 | disposition home or self-care (01) | DRG 282 ==
LOC: EC 02:16 → UNDOADMOB 04:10 → 1SOBS 04:10 → 3SCARD 07:57 → OBSVTOIN 01-18 08:27
PROVIDERS: ADMIT Hospitalist; ATTEND Hospitalist
PROC: B2131ZZ Fluoroscopy of Multiple Coronary Artery Bypass Grafts using Low Osmolar Contrast (ICD-10-PCS; principal; 2020-01-18 07:30)
PROC: 4A023N7 Measurement of Cardiac Sampling and Pressure, Left Heart, Percutaneous Approach (ICD-10-PCS; principal; 2020-01-18 07:30)
PROC: B2111ZZ Fluoroscopy of Multiple Coronary Arteries using Low Osmolar Contrast (ICD-10-PCS; principal; 2020-01-18 07:30)
DX: I21.4 Non-ST elevation (NSTEMI) myocardial infarction (principal); I27.20 Pulmonary hypertension, unspecified; J44.9 Chronic obstructive pulmonary disease, unspecified; E78.5 Hyperlipidemia, unspecified; I10 Essential (primary) hypertension; I25.10 Atherosclerotic heart disease of native coronary artery without angina pectoris; K21.9 Gastro-esophageal reflux disease without esophagitis; Z11.59 Encounter for screening for other viral diseases; R51 Headache; I08.1 Rheumatic disorders of both mitral and tricuspid valves; Z79.82 Long term (current) use of aspirin; Z79.899 Other long term (current) drug therapy; Z87.891 Personal history of nicotine dependence; Z95.1 Presence of aortocoronary bypass graft; Z87.01 Personal history of pneumonia (recurrent); Z82.49 Family history of ischemic heart disease and other diseases of the circulatory system; Z83.3 Family history of diabetes mellitus
CPT/HCPCS: 36415; 70450; 71046; 71275; 80048; 80053; 80061; 82550; 83690; 83735; 83880; 84484; 85025; 85049; 85379; 85610; 85730; 90732; 93005; 93306; 93458; 96365; 96366; 96375; 96376; 99285